=== PATIENT | male | born 1945 | race Caucasian/White ===

== ENCOUNTER → 2017-06-03 | Outpatient (CLI) | payer OTHER ==
[2017-06-03 12:44] LABS: ALBUMIN 3.6 g/dL (3.5-5.0); BUN/CREATININE RATIO 14.3 (6.0-26.0); CALCIUM 9.8 mg/dL (8.4-10.2); POTASSIUM 4.2 mmol/L (3.6-5.0); TOTAL BILIRUBIN 0.5 mg/dL (0.2-1.3); TOTAL PROTEIN 6.6 g/dL (6.3-8.2)
[2017-06-03 13:14] LABS: BASO # 0.1 (0.02-0.10); EOS # 0.4 (0.04-0.40); HEMATOCRIT 35.1 % (42.0-52.0); HEMOGLOBIN 11.7 g/dL (13.5-18.0); LYMPH# 0.8 (1.50-4.00); MEAN CELL VOLUME 87 fl (78-100); MEAN CORPUSCULAR HEMOGLOBIN 29 pg (27-31); MEAN CORPUSCULAR HGB CONC 33 g/dL (33-37); MEAN PLATELET VOLUME 9.5 fl (7.4-10.4); MONO # 0.5 (0.20-0.80); NEU # 3.6 (1.40-6.50); PLATELET COUNT 301 K/mm3 (130-400); RED BLOOD COUNT 4.02 M/mm3 (4.20-5.60); RED CELL DISTRIBUTION WIDTH 13.3 % (11.5-14.5); WHITE BLOOD COUNT 5.4 K/mm3 (4.8-10.8)
[2017-06-03 13:45] LABS: EOS % 7.6 % (0.0-4.0)
[2017-06-03 14:06] LABS: ERYTHROCYTE SEDIMENTATION RATE 71 mm/hr (0-20)
== END ==
LOC: LAB 12:17
DX: M00.811 Arthritis due to other bacteria, right shoulder (principal)

== ENCOUNTER → 2017-06-11 | Outpatient (CLI) | payer MEDICARE ==
[2017-06-11 14:24] LABS: EOS # 0.3 (0.04-0.40); EOS % 4.6 % (0.0-4.0); HEMATOCRIT 37.8 % (42.0-52.0); HEMOGLOBIN 12.4 g/dL (13.5-18.0); MEAN CELL VOLUME 88 fl (78-100); MEAN CORPUSCULAR HEMOGLOBIN 29 pg (27-31); MEAN CORPUSCULAR HGB CONC 33 g/dL (33-37); MEAN PLATELET VOLUME 9.9 fl (7.4-10.4); MONO # 0.6 (0.20-0.80); PLATELET COUNT 271 K/mm3 (130-400); RED CELL DISTRIBUTION WIDTH 13.9 % (11.5-14.5); WHITE BLOOD COUNT 5.9 K/mm3 (4.8-10.8)
[2017-06-11 14:31] LABS: BUN/CREATININE RATIO 16.2 (6.0-26.0); CALCIUM 9.7 mg/dL (8.4-10.2); POTASSIUM 4.4 mmol/L (3.6-5.0); TOTAL BILIRUBIN 0.5 mg/dL (0.2-1.3); TOTAL PROTEIN 6.9 g/dL (6.3-8.2)
[2017-06-11 14:56] LABS: ERYTHROCYTE SEDIMENTATION RATE 13 mm/hr (0-20)
== END ==
LOC: LAB 14:01
DX: M00.811 Arthritis due to other bacteria, right shoulder (principal)

== ENCOUNTER → 2017-06-18 | Outpatient (CLI) | payer MEDICARE ==
[2017-06-18 12:21] LABS: EOS # 0.3 (0.04-0.40); HEMOGLOBIN 12.5 g/dL (13.5-18.0); LYMPH# 0.9 (1.50-4.00); MEAN CELL VOLUME 88 fl (78-100); MEAN CORPUSCULAR HEMOGLOBIN 29 pg (27-31); MEAN CORPUSCULAR HGB CONC 33 g/dL (33-37); MEAN PLATELET VOLUME 10.1 fl (7.4-10.4); MONO # 0.4 (0.20-0.80); PLATELET COUNT 244 K/mm3 (130-400); RED BLOOD COUNT 4.31 M/mm3 (4.20-5.60); WHITE BLOOD COUNT 4.6 K/mm3 (4.8-10.8)
[2017-06-18 12:22] LABS: EOS % 6.9 % (0.0-4.0)
[2017-06-18 12:34] LABS: ALBUMIN 4.1 g/dL (3.5-5.0); BUN/CREATININE RATIO 11.7 (6.0-26.0); CALCIUM 9.5 mg/dL (8.4-10.2); POTASSIUM 4.2 mmol/L (3.6-5.0); TOTAL BILIRUBIN 0.6 mg/dL (0.2-1.3); TOTAL PROTEIN 6.9 g/dL (6.3-8.2)
[2017-06-18 13:56] LABS: ERYTHROCYTE SEDIMENTATION RATE 33 mm/hr (0-20)
== END ==
LOC: LAB 12:12
DX: M00.811 Arthritis due to other bacteria, right shoulder (principal)

== ENCOUNTER → 2017-06-25 | Outpatient (CLI) | payer MEDICARE ==
[2017-06-25 11:10] LABS: EOS # 0.2 (0.04-0.40); HEMATOCRIT 39.5 % (42.0-52.0); MEAN CELL VOLUME 88 fl (78-100); MEAN CORPUSCULAR HEMOGLOBIN 29 pg (27-31); MEAN CORPUSCULAR HGB CONC 33 g/dL (33-37); MEAN PLATELET VOLUME 10.4 fl (7.4-10.4); MONO # 0.4 (0.20-0.80); NEU # 3.2 (1.40-6.50); PLATELET COUNT 191 K/mm3 (130-400); RED BLOOD COUNT 4.51 M/mm3 (4.20-5.60); RED CELL DISTRIBUTION WIDTH 14.1 % (11.5-14.5); WHITE BLOOD COUNT 4.6 K/mm3 (4.8-10.8)
[2017-06-25 11:26] LABS: ALBUMIN 4.1 g/dL (3.5-5.0); BUN/CREATININE RATIO 10.9 (6.0-26.0); CALCIUM 9.2 mg/dL (8.4-10.2); POTASSIUM 3.9 mmol/L (3.6-5.0); TOTAL BILIRUBIN 0.6 mg/dL (0.2-1.3); TOTAL PROTEIN 6.9 g/dL (6.3-8.2)
[2017-06-25 12:04] LABS: EOS % 5.3 % (0.0-4.0); LYMPH# 0.7 (1.50-4.00)
[2017-06-25 12:31] LABS: ERYTHROCYTE SEDIMENTATION RATE 22 mm/hr (0-20)
== END ==
LOC: LAB 10:51
DX: M00.811 Arthritis due to other bacteria, right shoulder (principal)

== ENCOUNTER → 2017-07-02 | Outpatient (CLI) | payer MEDICARE ==
[2017-07-02 14:20] LABS: EOS # 0.3 (0.04-0.40); HEMATOCRIT 38.9 % (42.0-52.0); HEMOGLOBIN 12.7 g/dL (13.5-18.0); LYMPH# 0.9 (1.50-4.00); MEAN CELL VOLUME 87 fl (78-100); MEAN CORPUSCULAR HEMOGLOBIN 28 pg (27-31); MEAN CORPUSCULAR HGB CONC 33 g/dL (33-37); MEAN PLATELET VOLUME 10.1 fl (7.4-10.4); MONO # 0.4 (0.20-0.80); NEU # 2.8 (1.40-6.50); PLATELET COUNT 209 K/mm3 (130-400); RED BLOOD COUNT 4.47 M/mm3 (4.20-5.60); RED CELL DISTRIBUTION WIDTH 14.1 % (11.5-14.5); WHITE BLOOD COUNT 4.4 K/mm3 (4.8-10.8)
[2017-07-02 14:46] LABS: ALBUMIN 4.2 g/dL (3.5-5.0); BUN/CREATININE RATIO 13.7 (6.0-26.0); CALCIUM 9.5 mg/dL (8.4-10.2); POTASSIUM 4.1 mmol/L (3.6-5.0); TOTAL BILIRUBIN 0.5 mg/dL (0.2-1.3); TOTAL PROTEIN 6.9 g/dL (6.3-8.2)
[2017-07-02 15:25] LABS: EOS % 5.7 % (0.0-4.0)
[2017-07-02 15:26] LABS: ERYTHROCYTE SEDIMENTATION RATE 30 mm/hr (0-20)
== END ==
LOC: LAB 14:00
DX: M00.811 Arthritis due to other bacteria, right shoulder (principal)

== ENCOUNTER → 2017-07-10 | Outpatient (CLI) | payer MEDICARE ==
[2017-07-10 11:32] LABS: ALBUMIN 4.1 g/dL (3.5-5.0); BUN/CREATININE RATIO 16.3 (6.0-26.0); CALCIUM 9.4 mg/dL (8.4-10.2); POTASSIUM 4.3 mmol/L (3.6-5.0); TOTAL BILIRUBIN 0.3 mg/dL (0.2-1.3); TOTAL PROTEIN 6.9 g/dL (6.3-8.2)
[2017-07-10 11:36] LABS: EOS # 0.3 (0.04-0.40); HEMATOCRIT 40.8 % (42.0-52.0); HEMOGLOBIN 13.1 g/dL (13.5-18.0); LYMPH# 0.9 (1.50-4.00); MEAN CELL VOLUME 88 fl (78-100); MEAN CORPUSCULAR HEMOGLOBIN 28 pg (27-31); MEAN CORPUSCULAR HGB CONC 32 g/dL (33-37); MEAN PLATELET VOLUME 10.5 fl (7.4-10.4); MONO # 0.5 (0.20-0.80); NEU # 2.9 (1.40-6.50); PLATELET COUNT 223 K/mm3 (130-400); RED BLOOD COUNT 4.64 M/mm3 (4.20-5.60); RED CELL DISTRIBUTION WIDTH 14.4 % (11.5-14.5); WHITE BLOOD COUNT 4.6 K/mm3 (4.8-10.8)
[2017-07-10 11:37] LABS: EOS % 5.7 % (0.0-4.0)
[2017-07-10 12:40] LABS: ERYTHROCYTE SEDIMENTATION RATE 12 mm/hr (0-20)
== END ==
LOC: LAB 10:32
DX: M00.011 Staphylococcal arthritis, right shoulder (principal)

== ENCOUNTER 2021-04-27 06:21 | Emergency (ER) | payer MEDICARE ==
[~2021-04-27] VITALS: Ht 182.9 cm; Wt 97.7 kg
[2021-04-27] MEDS ORDERED: LOSARTAN POTASS50 M1 PO (06:32)
[2021-04-27] MEDS ORDERED: ROSUVASTATIN CA40 MG PO (06:32)
[2021-04-27] MEDS ORDERED: FENOFIBRATE160 MG PO (06:32)
[2021-04-27] MEDS ORDERED: GLUCOPHAGE PO (06:32)
[2021-04-27] MEDS ORDERED: METOPROLOL SUCC50 M1 PO (06:32)
[2021-04-27 07:53] LABS: HEMATOCRIT 39.7 % (42.0-52.0); HEMOGLOBIN 13.6 g/dL (13.5-18.0); MEAN CELL VOLUME 93 fl (78-100); MEAN CORPUSCULAR HEMOGLOBIN 32 pg (27-31); MEAN CORPUSCULAR HGB CONC 34 g/dL (33-37); MEAN PLATELET VOLUME 9.6 fl (7.4-10.4); PLATELET COUNT 173 K/mm3 (130-400); RED BLOOD COUNT 4.27 M/mm3 (4.20-5.60); RED CELL DISTRIBUTION WIDTH 12.6 % (11.5-14.5); WHITE BLOOD COUNT 4.5 K/mm3 (4.8-10.8)
[2021-04-27 08:14] LABS: ALBUMIN 4.1 g/dL (3.4-4.8); POTASSIUM 4.2 mmol/L (3.5-5.1); SODIUM 140 mmol/L (136-145)
[2021-04-27 08:15] LABS: CALCIUM 9.8 mg/dL (8.3-10.5)
[2021-04-27 08:16] LABS: GLUCOSE 110 mg/dL (75-110); TOTAL PROTEIN 6.9 g/dL (6.2-8.1)
[2021-04-27 08:17] LABS: CARBON DIOXIDE 23 mmol/L (23-31)
[2021-04-27 08:18] LABS: TOTAL BILIRUBIN 0.4 mg/dL (0.2-1.2)
[2021-04-27 08:22] LABS: AST-SGOT 22 U/L (5-34)
[2021-04-27 08:23] LABS: ALT/SGPT 22 U/L (0-55)
[2021-04-27 08:39] LABS: TROPONIN-I < 0.03 ng/mL (<0.030)
[2021-04-27 09:13] LABS: URINE APPEARANCE HAZY; URINE COLOR YELLOW; URINE PROTEIN(semi-quant) 1+ mg/dL (NEGATIVE)
[2021-04-27 09:14] LABS: URINE BILIRUBIN NEGATIVE (NEGATIVE); URINE BLOOD 50 ery/uL (NEGATIVE); URINE GLUCOSE NEGATIVE (NEGATIVE); URINE KETONE NEGATIVE (NEGATIVE); URINE LEUKOCYTE ESTERASE NEGATIVE (NEGATIVE); URINE NITRATE NEGATIVE (NEGATIVE); URINE UROBILINOGEN NORMAL (NORMAL)
[2021-04-27 09:15] LABS: URINE MUCUS PRESENT (NOT PRESENT)
[2021-04-27 09:36] LABS: BAND 1 % (0-10); LYMPHOCYTE 10 % (20-51); MONOCYTE 9 % (3-10); NEUTROPHILS 77 % (42-75)
[2021-04-27 12:10] VITALS: BP 128/67
== END 2021-04-27 12:07 | disposition home or self-care (01) ==
LOC: ED 06:21
PROVIDERS: Physician Assistant
DX: N17.9 Acute kidney failure, unspecified (principal); I89.0 Lymphedema, not elsewhere classified; E78.00 Pure hypercholesterolemia, unspecified; I10 Essential (primary) hypertension; E11.9 Type 2 diabetes mellitus without complications; I25.10 Atherosclerotic heart disease of native coronary artery without angina pectoris; Z79.84 Long term (current) use of oral hypoglycemic drugs; Z87.891 Personal history of nicotine dependence; Z79.899 Other long term (current) drug therapy
CPT/HCPCS: J7030

== ENCOUNTER → 2021-12-25 | Outpatient (CLI) | payer MEDICARE ==
[~2021-12-25] MED LIST: FENOFIBRATE160 MG PO; GLUCOPHAGE PO; LOSARTAN POTASS50 M1 PO; METOPROLOL SUCC50 M1 PO; ROSUVASTATIN CA40 MG PO
== END ==
LOC: RAD 14:12
DX: M43.16 Spondylolisthesis, lumbar region (principal); M47.816 Spondylosis without myelopathy or radiculopathy, lumbar region; M48.061 Spinal stenosis, lumbar region without neurogenic claudication; M51.36 Other intervertebral disc degeneration, lumbar region; M51.26 Other intervertebral disc displacement, lumbar region